=== PATIENT | female | born 1985 | race Caucasian/White ===

== ENCOUNTER 2017-02-10 20:03 | Emergency (ER) | payer BC ==
[~2017-02-10] VITALS: Ht 175.3 cm; Wt 54.0 kg
[2017-02-10 20:05] VITALS: BP_SYST 130
--- NOTE | 2017-02-10 21:06 | NUR ---
Patient to ER bed 5 to gown for evaluation. Side rails up. Report given to DEANNA MASON.
--- NOTE | 2017-02-10 21:07 | NUR ---
Pt states that she notices sores on sunday on R arm. Pt has three spots that are open sores. No redness or swelling noted, but has scant yellow exudate. Pt staes its only itchy. Will continue to monitor. No other injuries or complaints mentioned/noted.
--- NOTE | 2017-02-10 21:15 | NUR ---
Dr Ward at bedside to evaluate patient.
--- NOTE | 2017-02-10 21:47 | NUR ---
Patient given written and verbal discharge instructions and verbalizes understanding. ER MD discussed with patient the results and treatment provided. Patient in stable condition. ID arm band removed. Rx of Augmentin given. Patient educated on pain management and to follow up with PMD. Pain Scale 0. Opportunity for questions provided and answered.
== END 2017-02-10 21:44 | disposition home or self-care (01) ==
LOC: SED 20:03
DX: S40.861A Insect bite (nonvenomous) of right upper arm, initial encounter (principal); R03.0 Elevated blood-pressure reading, without diagnosis of hypertension; W57.XXXA Bitten or stung by nonvenomous insect and other nonvenomous arthropods, initial encounter; Y93.89 Activity, other specified; Y92.89 Other specified places as the place of occurrence of the external cause; Y99.8 Other external cause status
CPT/HCPCS: 99283